=== PATIENT | male | born 1960 | race Caucasian/White ===

== ENCOUNTER 2018-03-06 06:56 | Day surgery (SDC) ==
[2018-03-06 07:25] VITALS: TEMP 97.3
[2018-03-06] MEDS ORDERED: LIDOCAINE 1% 20 ML MDV ID STA (07:28)
[2018-03-06] MEDS ORDERED: VERSED ONE (08:15)
[2018-03-06] MEDS ORDERED: DIPRIVAN 20 ML VIAL IVP ONE (08:15)
[2018-03-06 10:15] VITALS: BP 112/66
--- NOTE | 2018-03-07 12:56 | OP ---
PROCEDURE: COLONOSCOPY TO THE CECUM. ENDOSCOPIST: Brina JOEL M.D. INDICATION: HISTORY OF POLYPS. INSTRUMENT: [id number]. MEDICATION: PER ANESTHESIA. [place] BOWEL PREP SCORE = 9 PROCEDURE: The patient was positioned for colonoscopy. The digital rectal exam was negative. The colonoscope was inserted through the anus and advanced to the cecum. The cecum was identified using the ileocecal valve and the appendiceal orifice as landmarks. The scope was slowly withdrawn through an adequately prepped colon. Scattered diverticulosis in the left colon. Retroflex exam otherwise normal. The patient tolerated the procedure well without immediate complication. Withdrawal time 11 minutes, 20 seconds. PLAN: 1. Suggest repeat colonoscopy for surveillance in five years. CC: DR. NILAM DEE [id number] [facility] [address] [place] [address] [facility] [place]
== END 2018-03-06 09:15 | disposition home or self-care (01) ==
LOC: SURG 06:56
PROVIDERS: ATTEND Internal Medicine Gastroenterology
DX: Z86.010 Personal history of colon polyps (principal)